=== PATIENT | female | born 1940 | race African-American/Black ===

== ENCOUNTER 2017-10-26 10:41 | Day surgery (SDC) | payer OTHER ==
[2017-10-26] MEDS ORDERED: TETRACAINE 0.5% OPHTH 1 DOSE AFFEYE ONE ×2 (11:10→13:46)
[2017-10-26] MEDS ORDERED: VIGAMOX 0.5% OPHTH 1 DOSE AFFEYE ONE ×4 (11:11→14:09)
[2017-10-26] MEDS ORDERED: PROLENSA OPHTH 1 DOSE AFFEYE ONE (11:22)
[2017-10-26] MEDS ORDERED: ALPHAGAN-P OPHTH 1 DOSE AFFEYE ONE (11:23)
[2017-10-26] MEDS ORDERED: AK-DILATE 2.5% OPHTH 1 DOSE OP ONE ×4 (11:24→11:27)
[2017-10-26] MEDS ORDERED: CYCLOGYL 1% OPHTH 1 DOSE OP ONE ×4 (11:24→11:27)
[2017-10-26] MEDS ORDERED: MYDRIACIL OPHTH 1 DOSE AFFEYE ONE ×4 (11:24→11:27)
[2017-10-26] MEDS ORDERED: NS 500 ML IV 500 ML IV ONE (12:52)
[2017-10-26] MEDS ORDERED: BETADINE OPHTH SOLN 5% EACHEYE ONE (13:46)
[2017-10-26] MEDS ORDERED: ADRENALINE CHL INJ IJ ONE (13:59)
[2017-10-26] MEDS ORDERED: BSS OPHTH (PLAIN) 500 ML with VANCOMYCIN HCL 500 MG VIAL 25 MG, ADRENALINE CHL INJ 1 MG IR ONE ×3 (13:59)
[2017-10-26] MEDS ORDERED: XYLOCAINE-MPF 1% IJ ONE (13:59)
[2017-10-26] MEDS ORDERED: DUOVISC IO ONE (13:59)
[2017-10-26 15:26] VITALS: BP 122/72
[2017-10-26] MEDS ORDERED: SUPRANE IN ONE (15:41)
[2017-10-26] MEDS ORDERED: DIPRIVAN VIAL ONE (15:41)
== END 2017-10-26 14:55 | disposition home or self-care (01) ==
LOC: SURG1 10:41
PROVIDERS: ATTEND Ophthalmology
PROC: 08DK3ZZ Extraction of Left Lens, Percutaneous Approach (ICD-10-PCS; principal; 2017-10-26 21:45)
PROC: 08RK3JZ Replacement of Left Lens with Synthetic Substitute, Percutaneous Approach (ICD-10-PCS; principal; 2017-10-26 21:45)
DX: H25.12 Age-related nuclear cataract, left eye (principal)
CPT/HCPCS: 99100; A4217; J0170; J3370; J3490

== ENCOUNTER 2017-11-09 08:52 | Day surgery (SDC) | payer OTHER ==
[~2017-11-09 08:52] MED LIST: AK-DILATE 2.5% OPHTH 1 DOSE OP ONE; ALPHAGAN-P OPHTH 1 DOSE AFFEYE ONE; CYCLOGYL 1% OPHTH 1 DOSE OP ONE; MYDRIACIL OPHTH 1 DOSE AFFEYE ONE; PROLENSA OPHTH 1 DOSE AFFEYE ONE; TETRACAINE 0.5% OPHTH 1 DOSE AFFEYE ONE; VIGAMOX 0.5% OPHTH 1 DOSE AFFEYE ONE
[2017-11-09] MEDS ORDERED: NS 500 ML IV 500 ML IV ONE (09:38)
[2017-11-09] MEDS ORDERED: TETRACAINE 0.5% OPHTH 1 DOSE AFFEYE ONE ×2 (11:28→11:36)
[2017-11-09] MEDS ORDERED: BETADINE OPHTH SOLN 5% EACHEYE ONE (11:28)
[2017-11-09] MEDS ORDERED: XYLOCAINE-MPF 1% IJ ONE (11:36)
[2017-11-09] MEDS ORDERED: DUOVISC IO ONE (11:36)
[2017-11-09] MEDS ORDERED: ADRENALINE CHL INJ IJ ONE (11:36)
[2017-11-09] MEDS ORDERED: BSS OPHTH (PLAIN) 500 ML with VANCOMYCIN HCL 500 MG VIAL 25 MG, ADRENALINE CHL INJ 1 MG IR ONE ×3 (11:36)
[2017-11-09] MEDS ORDERED: VIGAMOX 0.5% OPHTH 1 DOSE AFFEYE ONE ×2 (11:40→11:47)
[2017-11-09] MEDS ORDERED: DILAUDID INJ IVP PRN (12:28)
[2017-11-09] MEDS ORDERED: BENADRYL INJ 50 MG VIAL IVP PRN (12:28)
[2017-11-09] MEDS ORDERED: ZOFRAN INJ 4 MG VIAL IVP PRN (12:28)
[2017-11-09] MEDS ORDERED: PHENERGAN INJ 25 MG IVP PRN (12:28)
[2017-11-09] MEDS ORDERED: REGLAN INJ 10 MG VIAL IVP PRN (12:28)
[2017-11-09 12:55] VITALS: BP 146/69
[2017-11-09] MEDS ORDERED: SUPRANE IN ONE (15:27)
== END 2017-11-09 12:50 | disposition home or self-care (01) ==
LOC: SURG1 08:52
PROVIDERS: ATTEND Ophthalmology
PROC: 08RJ3JZ Replacement of Right Lens with Synthetic Substitute, Percutaneous Approach (ICD-10-PCS; principal; 2017-11-09 14:30)
PROC: 08DJ3ZZ Extraction of Right Lens, Percutaneous Approach (ICD-10-PCS; principal; 2017-11-09 14:30)
DX: H25.11 Age-related nuclear cataract, right eye (principal)
CPT/HCPCS: 99100; A4217; J0170; J3370